=== PATIENT | female | born 1985 | race African-American/Black ===

== ENCOUNTER 2019-10-01 04:25 | Emergency (ER) | payer MEDICAID, SELFPAY ==
[2019-10-01] VITALS (7 sets, daily range): BP systolic 120–145; BP diastolic 68–101; PULSE 72–88; RESP 16–18; TEMP 36.7; O2SAT 97–100
--- NOTE | ~2019-10-01 | XR_ITS ---
EXAMINATION: XR chest 1V portable DATE: 10/01/2019 05:55 INDICATION: Midsternal chest pain. Shortness of breath. TECHNIQUE: A single frontal view of the chest was obtained. COMPARISON: None. FINDINGS: There are mild airspace opacities in the lower lung zones. No pleural effusion or pneumotho rax. The heart size is normal. IMPRESSION: 1. Mild airspace opacities in the lower lung zones, consistent with atelectasis or less likely pneumo sherie. Reviewed, dictated and finalized at location A. IMPRESSION: 1. Mild airspace opacities in the lower lung zones, consistent with atelectasis or less likely pneumonia.
--- NOTE | 2019-10-01 04:55 | ECG_ITS ---
Measurements Intervals [place] Rate: 81 P: 47 MO: 149 QRS: 5 QRSD: 85 T: 52 QT: 375 QTc: 438 Interpretive Statements SINUS RHYTHM NONSPECIFIC T-WAVE ABNORMALITY- ANT/INF LEADS BASELINE ARTIFACT- I, III, AVL BORDERLINE ECG Electronically Signed On 10-01-2019 7:06:42 CDT by Cuate Alva D.O.
--- NOTE | 2019-10-01 05:05 | ED.CHESTPAIN ---
HPI - Chest Pain General Chief Complaint: Chest Pain <Martin Graham MD - Last Filed: 10/02/19 04:38> Stated Complaint: CP SOB <Martin Graham MD - Last Filed: 10/02/19 04:38> Time Seen by Provider: 10/01/19 05:03 <Martin Graham MD - Last Filed: 10/02/19 04:38> Source: patient <Martin Graham MD - Last Filed: 10/02/19 04:38> History of Present Illness HPI narrative: Pt c/o chest pain, midsternal, 7/10, pressure, non radiating, started yesterday accompanied by sob. Pt states she had a friend that tested positive for Covid 2 weeks ago. <Martin Graham MD - Last Filed: 10/02/19 04:38> MD complaint: chest pain <Martin Graham MD - Last Filed: 10/02/19 04:38> Related Data Home Medications: Home Medications Medication Instructions Recorded Confirmed No Home Medications 10/01/19 10/01/19 <Martin Graham MD - Last Filed: 10/02/19 04:38> Allergies/Adverse Reactions: Allergies Allergy/AdvReac Type Severity Reaction Status Date / Time No Known Allergies Allergy Verified 10/01/19 04:58 <Martin Graham MD - Last Filed: 10/02/19 04:38> Review of Systems Review of Systems: All systems reviewed & are unremarkable except as noted in HPI and below <Martin Graham MD - Last Filed: 10/02/19 04:38> Constitutional: Constitutional: Denies body ache(s), Denies chills, Denies excessive sweating, Denies fatigue, Denies fever(s), Denies headache(s), Denies lethargy, Denies malaise, Denies weakness and Denies weight loss <Martin Graham MD - Last Filed: 10/02/19 04:38> Eyes: Eyes: Denies blurry vision, Denies change in vision and Denies loss of vision <Martin Graham MD - Last Filed: 10/02/19 04:38> ENT: Denies dizziness, Denies ear discharge, Denies headache(s), Denies lip swelling, Denies epistaxis, Denies nasal congestion, Denies neck pain, Denies throat swelling and Denies tongue swelling <Martin Graham MD - Last Filed: 10/02/19 04:38> Cardiovascular: Cardiovascular: Denies chest pain at rest, Denies chest pain with activity, Denies diaphoresis, Denies rapid heart rate, Denies edema, Denies irregular heart rhythm, Denies lightheadedness and Denies palpitations <Martin Graham MD - Last Filed: 10/02/19 04:38> Respiratory: Respiratory: Denies chest congestion, Denies cough and Denies hemoptysis <Martin Graham MD - Last Filed: 10/02/19 04:38> Gastrointestinal: Gastrointestinal: Denies abdominal pain, Denies melena, Denies hematochezia, Denies diarrhea, Denies nausea, Denies vomiting and Denies hematemesis <Martin Graham MD - Last Filed: 10/02/19 04:38> Musculoskeletal: Musculoskeletal: Denies abnormal gait, Denies deformity, Denies joint swelling, Denies limited range of motion, Denies neck pain and Denies numbness <Martin Graham MD - Last Filed: 10/02/19 04:38> Neurologic: Denies Abnormal speech present, Denies abnormal gait, Denies confusion, Denies dizziness, Denies headache(s), Denies focal weakness, Denies loss of vision, Denies numbness, Denies Other visual disturbances, Denies Sensory deficit (Neuro) and Denies weakness <Martin Graham MD - Last Filed: 10/02/19 04:38> Psychiatric: Psychiatric: Denies confusion, Denies depression, Denies auditory hallucinations, Denies homicidal ideation and Denies suicidal ideation <Martin Graham MD - Last Filed: 10/02/19 04:38> Endocrine: Endocrine: Denies cold intolerance, Denies excessive sweating, Denies fatigue, Denies heat intolerance and Denies palpitations <Martin Graham MD - Last Filed: 10/02/19 04:38> Hematologic/Lymphatic: Hematologic/Lymphatic: Denies easy bleeding and Denies easy bruising <Martin Graham MD - Last Filed: 10/02/19 04:38> Allergic/Immunologic: Allergic/Immunologic: Denies lip swelling, Denies throat swelling and Denies tongue swelling <Martin Graham MD - Last Filed: 10/02/19 04:38> Exam Const: General: cooperative,
[2019-10-01 05:10] LABS: Basophils Percent Auto 0.2 % (0.2-1.2); Hematocrit 36.1 % (37.0-47.0); Hemoglobin 12.2 g/dL (12.0-15.0); Lymphocytes Absolute Auto 1.71 K/mm3 (0.9-3.2); Lymphocytes Percent Auto 42.5 % (18.3-44.2); Mean Corpuscular HGB Conc 33.8 g/dl (32-36); Mean Platelet Volume 10.7 fl (7.4-10.4); Monocytes Absolute Auto 0.4 K/mm3 (0.1-0.6); Neutrophils Absolute Auto 1.9 K/mm3 (1.3-6.7); Neutrophils Percent Auto 47.3 % (45.5-73.1); Platelet Count Result 252 k/mm3 (150-375); Red Cell Distribution Width 12.3 % (11.5-14.5)
[2019-10-01 05:22] LABS: Partial Thromboplastin Time 30.2 SECONDS (22.3-36.8)
[2019-10-01 05:29] LABS: D Dimer 0.27 ug/mL (<0.48)
--- NOTE | 2019-10-01 05:30 | PC.NURSE ---
this RN called xray to make sure they saw the order for chest xray for pt. she states that they are all on the floor doing portables at the moment.
[2019-10-01 05:36] LABS: Blood Urea Nitrogen 13 mg/dL (7-17); Calcium 8.7 mg/dL (8.4-10.2); Carbon Dioxide 24 mmol/L (22-30); Chloride 105 mmol/L (98-107); Estimated Glomerular Filt Rate > 60; Glucose 97 mg/dL (65-105); Potassium 3.6 mmol/L (3.4-5.0); Sodium 138 mmol/L (137-145)
[2019-10-01 05:48] LABS: Troponin I < 0.012 ng/mL (0.000-0.034)
[2019-10-01] MEDS: BELLADONNA ALK/PHENOB ELIX 10 ML, MAG HYDROX/ALUMINUM HYD/SIMETH 30 ML, LIDOCAINE HCL 2... PO (06:27)
[2019-10-01 08:29] LABS: Troponin I < 0.012 ng/mL (0.000-0.034)
== END 2019-10-01 11:11 | disposition home or self-care (01) ==
PROVIDERS: Emergency Medicine; Emergency Provider Emergency Medicine
DX: R07.9 Chest pain, unspecified (principal); K21.9 Gastro-esophageal reflux disease without esophagitis
CPT/HCPCS: 36415; 71045; 71046; 80048; 81025; 84484; 85025; 85380; 85610; 85730; 93005; 99284; A9270

== ENCOUNTER 2021-01-24 07:14 | Emergency (ER) | payer OTHER, SELFPAY ==
[2021-01-24 07:29] VITALS: BP 130/89; PULSE 69; RESP 18; TEMP 36.2; O2SAT 100
--- NOTE | 2021-01-24 07:32 | ED.FEMALEGU ---
HPI - Female Genitourinary General Chief complaint: Urogenital-Female Stated complaint: uti? Time Seen by Provider: 01/24/21 07:19 Source: patient and RN notes reviewed Mode of arrival: ambulatory Limitations: no limitations History of Present Illness HPI Narrative: This is 36 year old female who presents for evaluation of lower abdominal pain and UTI. She developed constant lower abdominal pain that she describes as sharp. She also has increased urinary frequency and urgency. She took a dose of azo yesterday. She states yesterday she woke up with fever of 103 so she came to ER this morning. She denies nausea, vomiting or diarrhea. She also also denies vaginal discharge. She reports normal bowel movements. Patient had gastric bypass in [place] 1 month ago. Related Data Allergies Allergy/AdvReac Type Severity Reaction Status Date / Time No Known Allergies Allergy Verified 01/24/21 07:32 Review of Systems Review of Systems: All systems reviewed & are unremarkable except as noted in HPI and below PMFSH Past Medical History Medical History (Updated 01/24/21 @ 12:00 by Shonda Menjivar MD) Patient denies medical problems Surgical History Surgical History (Updated 01/24/21 @ 07:35 by Shonda Menjivar MD) H/O gastric bypass Social History Social History (Updated 01/24/21 @ 07:35 by Shonda Menjivar MD) Smoking status: Never smoker Exam Const: General: no acute distress and alert Orientation/consciousness: patient oriented x3 Eyes: EOM: EOMs intact bilaterally Resp: Effort & Inspection: normal respiratory effort and no retractions Auscultation: clear to auscultation bilaterally Cardio: Rate: regular rate Rhythm: regular rhythm Heart sounds: no murmurs GI: GI Palp: Yes Soft to palpation, Yes Tenderness to palpation present (GI) and No Guarding due to palpation present (GI) Auscultation: normal bowel sounds : Speculum Exam - Vagina: abnormal vaginal discharge other (thick white and yellow discharge) Speculum Exam - Cervix: normal appearance of the cervix and Cervical os closed Neuro: General: patient oriented x3, moves all extremities and CN's II-XI intact bilaterally Psych: Mental Status: mental status grossly normal Affect: normal affect Course Reevaluation(s) Reevaluation #1: I discussed with patient that she will be started on antibiotics for UTI and possible PID. Date: 01/24/21 Time: 11:59 Vital Signs Vital signs: Vital Signs Temperature 97.1 F L 01/24/21 07:29 Pulse Rate 69 01/24/21 07:29 Respiratory Rate 18 01/24/21 07:29 Blood Pressure 130/89 01/24/21 07:29 Pulse Oximetry 100 01/24/21 07:29 Temperature 97.1 F L 01/24/21 07:29 Pulse Rate 70 01/24/21 12:09 Respiratory Rate 18 01/24/21 12:09 Blood Pressure 128/86 01/24/21 12:09 Pulse Oximetry 100 01/24/21 12:09 MDM - Female Genitourinary Lab Data Attestation: I reviewed the patient's lab results. Result diagrams: 01/24/21 07:34 01/24/21 07:34 Labs: Lab Results 01/24/21 01/24/21 01/24/21 Range/Units 07:34 07:34 07:34 WBC 4.5 (4.5-10.0) K/mm3 RBC 4.34 (4.2-5.4) M/mm3 Hgb 12.2 (12.0-15.0) g/dL Hct 37.4 (37.0-47.0) % MCV 86.2 (80-100) fl MCH 28.1 (26-34) pg MCHC 32.6 (32-36) g/dl RDW 13.7 (11.5-14.5) % Plt Count 260 (150-375) k/mm3 MPV 11.1 H (7.4-10.4) fl Immature Gran % (Auto) 0.2 (0-0.5) % Neut % (Auto) 57.3 (45.5-73.1) % Lymph % (Auto) 30.5 (18.3-44.2) % [place] % (Auto) 9.6 H (2.6-8.5) % Eos % (Auto) 2.2 (0-4.4) % Baso % (Auto) 0.2 (0.2-1.2) % Lymph # (Auto) 1.36 (0.9-3.2) K/mm3 [place] # (Auto) 0.4 (0.1-0.6) K/mm3 Eos # (Auto) 0.1 (0-0.3) K/mm3 Baso # (Auto) 0.0 (0.0-0.1) K/mm3 Abs Immat Gran (auto) 0.01 (0.00-0.031) K/mm3 Absolute Neuts (auto) 2.6 (1.3-6.7) K/mm3 Absolute Nucleated RBC 0.0 (0.0-0.012) K/mm3 Nucleate
[2021-01-24 07:44] LABS: Basophils Percent Auto 0.2 % (0.2-1.2); Eosinophils Absolute Auto 0.1 K/mm3 (0-0.3); Eosinophils Percent Auto 2.2 % (0-4.4); Hematocrit 37.4 % (37.0-47.0); Hemoglobin 12.2 g/dL (12.0-15.0); Immature Granulocyte Absolute 0.01 K/mm3 (0.00-0.031); Immature Granulocyte Percent A 0.2 % (0-0.5); Lymphocytes Absolute Auto 1.36 K/mm3 (0.9-3.2); Lymphocytes Percent Auto 30.5 % (18.3-44.2); Mean Corpuscular HGB Conc 32.6 g/dl (32-36); Mean Corpuscular Hemoglobin 28.1 pg (26-34); Mean Corpuscular Volume 86.2 fl (80-100); Mean Platelet Volume 11.1 fl (7.4-10.4); Monocytes Absolute Auto 0.4 K/mm3 (0.1-0.6); Monocytes Percent Auto 9.6 % (2.6-8.5); Neutrophils Absolute Auto 2.6 K/mm3 (1.3-6.7); Neutrophils Percent Auto 57.3 % (45.5-73.1); Platelet Count Result 260 k/mm3 (150-375); Red Blood Count 4.34 M/mm3 (4.2-5.4); Red Cell Distribution Width 13.7 % (11.5-14.5); White Blood Count 4.5 K/mm3 (4.5-10.0)
[2021-01-24] MEDS: SODIUM CHLORIDE 0.9% IV 1,000 ML 999 ML IV CONT (07:50)
[2021-01-24 07:52] LABS: Add Urine Microscopic? YES; Appearance Urine Cloudy (Clear); Bacteria Urine Trace /hpf; Bilirubin Urine Negative (Negative); Glucose Urine UA Negative (Negative); Ketones Urine Negative (Negative); Leukocyte Esterase Ur Negative LEU/UL (Negative); Mucus Urine Rare /lpf; Nitrate Urine Positive (Negative); Protein Urine 1+ mg/dL (Negative); RBC Urine 0-2 /hpf (0-2); Specific Grav Ur 1.015 (1.001-1.035); Squamous Epithelial Cell Urine Many /hpf (Few); WBC Urine 21-30 /hpf
[2021-01-24 08:08] LABS: Alanine Aminotransferase 27 U/L (4-35); Albumin Level 3.9 g/dL (3.5-5.1); Alkaline Phosphatase 56 U/L (38-126); Anion Gap 6 mmol/L (8-16); Aspartate Amino Transferase 40 U/L (14-36); Bilirubin,Total 0.4 mg/dL (0.2-1.3); Blood Urea Nitrogen 8 mg/dL (7-17); Carbon Dioxide 26 mmol/L (22-30); Chloride 107 mmol/L (98-107); Estimated CRCL calculation 85 ml/min; Estimated Glomerular Filt Rate > 60; Glucose 89 mg/dL (65-110); Potassium 3.3 mmol/L (3.4-5.0); Sodium 139 mmol/L (137-145)
[2021-01-24 08:47] LABS: Blood Urine Negative (Negative)
[2021-01-24 08:48] LABS: Color Urine Yellow (Yellow)
[2021-01-24] MEDS: cefTRIAXone 1 GM VIAL 0.5 GM IM (10:47)
[2021-01-24] MEDS: LIDOCAINE HCL 1% LOCAL INJ 20 ML VIAL (10:48)
[2021-01-24 12:09] VITALS: BP 128/86; PULSE 70; RESP 18; O2SAT 100
== END 2021-01-24 12:11 | disposition home or self-care (01) ==
PROVIDERS: Emergency Provider General Practice
DX: N39.0 Urinary tract infection, site not specified (principal); N73.9 Female pelvic inflammatory disease, unspecified
CPT/HCPCS: 36415; 80053; 81001; 81025; 85025; 87070; 87077; 87086; 87088; 87491; 87591; 87808; 96361; 96372; 96374; 99284; J0131; J0696; J7030